=== PATIENT | male | born 2005 | race Two or more races ===

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

== ENCOUNTER 2024-01-17 09:00 | Outpatient (RCR) | payer OTHER, SELFPAY ==
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
== END 2024-05-22 13:35 | disposition home or self-care (01) ==
LOC: HO.PTCHIC 09:00
PROVIDERS: PCP Internal Medicine; Visit Provider Internal Medicine
DX: M54.6 Pain in thoracic spine (principal); G89.29 Other chronic pain
CPT/HCPCS: 97110; 97140; 97161